=== PATIENT | female | born 1965 | race Caucasian/White ===

== ENCOUNTER 2017-11-25 17:36 | Emergency (ER) | payer MEDICAID, OTHER ==
[2017-11-25 17:41] VITALS: BMI 29.1
[2017-11-25 17:47] VITALS: TEMP 98.8; O2SAT 100
--- NOTE | 2017-11-25 18:05 | ED PDOC ---
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 Patient stated she tripped on uneven side walk, causing her to fall forward. Patient was able to protect her face. Denies head injury, neck pain, MIGUEL, abnormal gait, dizziness, n/v, diplopia, CP, or SOB. Patient refused Tetanus. She is stated she is aware of risk of infection. Time/Duration: Prior to Arrival Quality: Aching Context: Home Past Medical History - Provider Review Nursing Documentation Reviewed: Yes - Infectious Disease Hx of Infectious Diseases: None - Reproductive Menopause: Yes - Psychiatric Hx Panic Disorder: Yes Hx Substance Use: No - Surgical History Other/Comment: L breast mass - Anesthesia Hx Anesthesia Reactions: No Hx Malignant Hyperthermia: No Family/Social History - Physician Review Nursing Documentation Reviewed: Yes Family/Social History: Other (noncontributory) Smoking Status: Never Smoked Hx Alcohol Use: No Hx Substance Use: No Allergies/Home Meds Allergies/Adverse Reactions: Allergies pseudoephedrine Allergy (Verified 11/25/17 17:42) RASH Sulfa (Sulfonamide Antibiotics) Allergy (Verified 11/25/17 17:42) SHORTNESS OF BREATH Review of Systems - Review of Systems Constitutional: Normal. absent: Fatigue, Weight Change, Fevers Eyes: Normal. absent: Vision Changes ENT: Normal Respiratory: Normal. absent: SOB Cardiovascular: Normal. absent: Chest Pain Gastrointestinal: Normal Genitourinary Female: Normal. absent: Dysuria, Frequency, Hematuria Musculoskeletal: Other (see hpi). absent: Back Pain, Neck Pain Skin: Other (see hpi) Neurological: Normal. absent: Headache, Dizziness, Focal Weakness, Gait Changes , Speech Changes, Facial Droop, Disequilibrium, Seizure Endocrine: Normal Hemo/Lymphatic: Normal Psychiatric: Normal Physical Exam Vital Signs Temp Pulse Resp BP Pulse Ox 11/25/17 17:37 98.8 F 76 16 134/78 100 Temperature: Afebrile Blood Pressure: Normal Pulse: Regular Respiratory Rate: Normal Appearance: Positive for: Well-Appearing, Non-Toxic, Comfortable, Uncomfortable Pain Distress: None Mental Status: Positive for: Alert and Oriented X 3 - Systems Exam Head: Present: Atraumatic, Normocephalic, Other (no raccoon sign. no beck sign). No: Tenderness, Contusion, Swelling, Ecchymosis, Abrasion, Laceration Pupils: Present: PERRL, Other (no hyphema) Extroacular Muscles: Present: EOMI. No: Entrapment Conjunctiva: Present: Normal Ears: Present: Normal, NORMAL TM, Normal Canal. No: Erythema, TM Bulging, Fluid , TM Perf Mouth: Present: Moist Mucous Membranes, Normal Lips, Normal Tounge, Normal Teeth. No: Dry, Drooling, Trismus Pharnyx: Present: Normal. No: ERYTHEMA, EXUDATE, TONSILS ENLARGED Nose (External): Present: Atraumatic Nose (Internal): Present: Normal Inspection Neck: Present: Normal Range of Motion, Trachea Midline. No: Meningeal Signs, MIDLINE TENDERNESS, Paraspinal Tenderness, Lymphadenopathy Back: Present: Normal Inspection. No: CVA Tenderness Upper Extremity: Present: Normal Inspection, Normal ROM, NORMAL PULSES, Neurovascularly Intact, Capillary Refill < 2s, Other ((+) small abrasion b/l palms. No bony tenderness) Lower Extremity: Present: NORMAL PULSES, Normal ROM, Neurovascularly Intact, Capillary Refill < 2 s, Other ((+) right anterior knee is mild swelling with superficial abrasion. Left knee is normal). No: Edema, CALF TENDERNESS Neurological: Present: GCS=15, CN II-XII Intact, Speech Normal, Motor Func Grossly Intact, Normal Sensory Function, Normal Cerebellar Funct, Gait Normal, Memory Normal Skin: Present: Warm, Dry, Normal Color. No: Rashes Psychiatric: Present: Alert, Oriented x 3, Normal Insight, Normal Concentration Medical Decision Making ED Course and Treatment: 11/25/17 19:22 Re-evaluation. Patient feels better. Discussed results and plan with patient who expresses understanding. All questions answered and there is agreement with the plan to discharge home with instructions. Patient stable for discharge. Return if symptoms persist or worsen. Patient was recommended to clean knee abrasion daily with soap and water. Take medication as instructed. To return to emergency if symptoms worsen. Re-evaluation Time: 19:22 Reassessment Condition: Re-examined, Improved - RAD Interpretation Narrative RAD Interpretations (Text): 11/25/17 19:24 B/L knee x-rays: No Fx or dislocation B/L hand x-rays; No fracture or dislocation Radiology Orders: 11/25/17 18:05 KNEE W PATELLA BILAT 3 VIEW [RAD] Stat 11/25/17 18:06 HAND LEFT 3 VIEWS ROUTINE [RAD] Stat HAND RIGHT 3 VIEWS [RAD] Stat - Medication Orders Current Medication Orders: Discontinued Medications Acetaminophen (Tylenol 325mg Tab) 650 mg PO STAT STA Stop: 11/25/17 18:12 Last Admin: 11/25/17 19:04 Dose: 650 mg MAR Pain/Vitals Document 11/25/17 19:04 LAKESHIA (Rec: 11/25/17 19:04 LA [id number]) Pain Reassessment Is This A Pain ReAssessment? No Sleep Is patient sleeping during reassessment? No Presence of Pain Presence of Pain Yes Pain Scale Used Pain Scale Used Numeric Location Left, Right or Bilateral Bilateral Pain Location Body Site Knee Intensity 7 Scale Used Numeric Pain Behavior Guarding Disposition/Present on Arrival - Present on Arrival Any Indicators Present on Arrival: No History of DVT/PE: No History of Uncontrolled Diabetes: No Urinary Catheter: No History of Decub. Ulcer: No History Surgical Site Infection Following: None - Disposition Have Diagnosis and Disposition been Completed?: Yes Diagnosis: Bilateral hand pain, Knee pain, bilateral, Abrasion of knee, right Disposition: HOME/ ROUTINE Disposition Time: 19:25 Patient Plan: Discharge Patient Problems: Current Active Problems Problem Status Onset Abrasion of knee, right Acute Bilateral hand pain Acute Knee pain, bilateral Acute Condition: GOOD Discharge Instructions (ExitCare): Knee Pain (DC), Skin Abrasions (DC) Additional Instructions: Call private doctor for follow up visit in 1-2 days. Take medication as instructed with food. Clean knee wound with soap and water daily. Do not use Peroxide, or alcohol. Return to emergency if symptoms worsen, or skin infection. Prescriptions: Cephalexin [Keflex] 500 mg PO QID #28 capsule Famotidine [Pepcid] 40 mg PO DAILY #10 tablet Ibuprofen [Motrin] 400 mg PO Q8H PRN #20 tab PRN Reason: Pain, Severe (8-10) Referrals: Rosalva Greene MD [Family Provider] - Follow up with primary Forms: [employer] (Vietnamese), WORK NOTE
[2017-11-25 19:45] VITALS: BP 125/70; PULSE 70; RESP 18
--- NOTE | 2017-11-26 08:49 | RAD ---
Date of service: 11/25/2017 PROCEDURE: Bilateral Knee Radiographs. HISTORY: pain s/p fall COMPARISON: None. FINDINGS: BONES: Right Knee: Normal. No fracture. Left Knee: Normal. No fracture. JOINTS: Right Knee: Normal. No osteoarthritis. Left knee: Normal. No osteoarthritis. SOFT TISSUES: Right Knee: Normal. Left Knee: Normal. JOINT EFFUSION: Right Knee: None. Left Knee: None. OTHER FINDINGS: None. IMPRESSION: Normal radiographs of the knees.
--- NOTE | 2017-11-26 08:50 | RAD ---
PROCEDURE: Left Hand Radiographs. HISTORY: pain s/p fall COMPARISON: None. FINDINGS: BONES: Normal. No fracture. JOINTS: Normal. No osteoarthritic changes. SOFT TISSUES: Normal. OTHER FINDINGS: None. IMPRESSION: Normal left hand radiographs.
--- NOTE | 2017-11-26 08:52 | RAD ---
PROCEDURE: Right Hand Radiographs. HISTORY: pain s/p fall COMPARISON: None. FINDINGS: BONES: Normal. No fracture. JOINTS: Normal. No osteoarthritic changes. SOFT TISSUES: Normal. OTHER FINDINGS: None. IMPRESSION: Normal right hand radiographs.
== END 2017-11-25 19:42 | disposition home or self-care (01) ==
LOC: ED 17:36
DX: M79.642 Pain in left hand (principal); M79.641 Pain in right hand; M25.562 Pain in left knee; M25.561 Pain in right knee; S80.211A Abrasion, right knee, initial encounter; W01.0XXA Fall on same level from slipping, tripping and stumbling without subsequent striking against object, initial encounter; Y92.480 Sidewalk as the place of occurrence of the external cause